=== PATIENT | female | born 1980 | race Caucasian/White ===

== ENCOUNTER 2019-03-19 16:10 | Emergency (ER) | payer OTHER ==
[~2019-03-19] VITALS: Ht 157.5 cm; Wt 50.0 kg
[2019-03-19] MEDS ORDERED: NS 1,000 ML IV ONE (19:15)
[2019-03-19] MEDS ORDERED: ONDANSETRON 4MG/2ML VIAL (J2405) IV ONE ×2 (19:15→20:30)
[2019-03-19 19:36] LABS: BASO % 0.2 % (0.0-1.0); HEMATOCRIT 44.6 % (36.0-47.0); LYMPH # 1.2 10^3/uL (1.5-5.0); LYMPH % 7.6 % (24.0-44.0); MEAN CORPUSCULAR HEMOGLOBIN 30.5 pg (27.0-33.0); MEAN CORPUSCULAR HGB CONC 33.6 g/dl (32.0-36.5); MEAN CORPUSCULAR VOLUME 90.7 fl (80.0-96.0); MONO # 0.6 10^3/uL (0.0-0.8); MONO % 3.4 % (0.0-5.0); NEUTROPHILS # 14.2 10^3/uL (1.5-8.5); NEUTROPHILS % 88.4 % (36.0-66.0); PLATELET COUNT, AUTOMATED 250 10^3/uL (150-450); RED BLOOD COUNT 4.92 10^6/uL (4.00-5.40); WHITE BLOOD COUNT 16.1 10^3/uL (4.0-10.0)
--- NOTE | 2019-03-19 19:46 | REPVR ---
PROCEDURE INFORMATION: Exam: CT Abdomen And Pelvis Without Contrast Exam date and time: 03/19/2019 6:55 PM Age: 38 years old Clinical indication: Abdominal pain; Flank; Lower; Additional info: Flank pain/dysuria TECHNIQUE: Imaging protocol: Computed tomography of the abdomen and pelvis without contrast. Radiation optimization: All CT scans at this facility use at least one of these dose optimization techniques: automated exposure control; mA and/or kV adjustment per patient size (includes targeted exams where dose is matched to clinical indication); or iterative reconstruction. COMPARISON: No relevant prior studies available. FINDINGS: Lungs: No suspicious mass or airspace process in the visualized lung bases. Liver: Noncontrast liver shows no obvious lesion. Gallbladder and bile ducts: Gallbladder is present and shows no evidence of gallstone. Pancreas: Noncontrast pancreas shows no obvious mass or adjacent fluid. Spleen: Noncontrast spleen shows no obvious focal deformity. Adrenals: Adrenal glands are normal in appearance. Kidneys and ureters: Left kidney demonstrates no stones or obstruction. Mild right hydronephrosis with ureter dilatation, apparently secondary to a punctate left UVJ stone measuring 1 mm, coronal image 29 and axial image 105. Stomach and bowel: No evidence of small bowel obstruction. No evidence of acute diverticulitis. Large volume of stool is seen throughout the colon. Appendix: Normal caliber appendix is identified, with no adjacent inflammation. Intraperitoneal space: No pneumoperitoneum. Vasculature: No aortic aneurysm. Lymph nodes: No enlarged lymph nodes. Bladder: Urinary bladder appears normal. Bones/joints: Bony structures show no acute fracture or destructive process. IMPRESSION: Mild right hydroureteronephrosis secondary to a punctate 1 mm right UVJ stone. Electronically signed by: Ivan Blackwood On 03/19/2019 19:45:42 PM
[2019-03-19 20:14] LABS: ALBUMIN 4.2 GM/DL (3.2-5.2); ALT/SGPT 20 U/L (12-78); BILIRUBIN,DIRECT 0.2 MG/DL (0.0-0.2); BILIRUBIN,TOTAL 0.5 MG/DL (0.2-1.0); BLOOD UREA NITROGEN 20 MG/DL (7-18); CALCIUM LEVEL 9.2 MG/DL (8.5-10.1); CARBON DIOXIDE LEVEL 22 MEQ/L (21-32); CHLORIDE LEVEL 105 MEQ/L (98-107); CREATININE FOR GFR 0.85 MG/DL (0.55-1.30); GLOMERULAR FILTRATION RATE > 60.0 (>60); GLUCOSE, FASTING 127 MG/DL (70-100); LIPASE 120 U/L (73-393); POTASSIUM SERUM 4.1 MEQ/L (3.5-5.1); SODIUM LEVEL 138 MEQ/L (136-145); TOTAL PROTEIN 7.7 GM/DL (6.4-8.2)
[2019-03-19] MEDS ORDERED: KETOROLAC 30 MG/ML VIAL (J1885) IV ONE (20:30)
[2019-03-19] MEDS ORDERED: CIPROFLOXACIN 400 MG in IV 1 EA IV ONE (21:15)
[2019-03-19] MEDS ORDERED: FLOM0.4C39 PO (22:00)
[2019-03-19] MEDS ORDERED: CIPR-250 PO (22:00)
[2019-03-19 23:22] VITALS: BP 126/71
== END 2019-03-19 23:25 | disposition home or self-care (01) ==
LOC: M ED 16:10
DX: N39.0 Urinary tract infection, site not specified (principal); N20.1 Calculus of ureter; N13.39 Other hydronephrosis; D72.829 Elevated white blood cell count, unspecified; E86.0 Dehydration; R79.89 Other specified abnormal findings of blood chemistry; Z87.440 Personal history of urinary (tract) infections
CPT/HCPCS: 74176; 80048; 80076; 81001; 83690; 84702; 85025; 87086; 96361; 96365; 96375; 99284; J0744; J2405